=== PATIENT | male | born 1970 | race Caucasian/White ===

== ENCOUNTER 2017-03-05 05:25 | Emergency (ER) | payer OTHER ==
[2017-03-05] VITALS (7 sets, daily range): BP systolic 107–131; BP diastolic 35–69; PULSE 87–117; RESP 16–27; O2SAT 95–100
[~2017-03-05] VITALS: Ht 180.3 cm; Wt 88.6 kg
[2017-03-05] MEDS ORDERED: Ondansetron 2 mg/mL 2 mL Inj IVPUSH PRN ×2 (06:05→06:20)
[2017-03-05] MEDS ORDERED: HYDROmorphone 0.5 mg/0.5 mL iSecure Syringe IVPUSH PRN ×2 (06:05→06:20)
[2017-03-05 06:10] LABS: BASOPHILS % (AUTO) 0.3 % (0-3); EOSINOPHILS % (AUTO) 0.4 % (0-5); MONOCYTES % (AUTO) 3.2 % (4-12); Mean Corpuscular Hemoglobin 28.8 pg (27.0-35.0); Mean Corpuscular Volume 84.1 fL (81-100); NEUTROPHILS % (AUTO) 81.8 % (40-74); Platelet Count 260 bil/L (150-400)
--- NOTE | 2017-03-05 06:11 | ED.REPORT ---
HPI-Abd Pain M 40 and Over Date of Service Mar 05, 2017 ED Provider: Gonázlez Durbin MD OCC A 46 year old male with a history of type 1 diabetes, hypertension and hyperlipidemia presents to the ED complaining of constant, burning, diffuse abdominal pain onset 03:00 today. He thought his symptoms are caused by dehydration although there are no obvious reasons why he would be dehydrated. He also complains of associated nausea and vomiting but denies fever, chills or dysuria. His symptoms are not relieved by anything. He has not experienced similar symptoms previously. His sugars are reportedly well maintained and was 180 prior to coming to the ED. The pt has not been in DKA in several years. Nursing Notes Stated Complaint: ABDOMINAL PAIN Chief Complaint: Male Abdominal Pain Nursing Notes Reviewed: Yes ([employer] not reconciled) Allergies: Coded Allergies: No Known Allergies (Unverified , 03/05/17) Scheduled ([Insulin Pump-Humalog]) Continuos Lisinopril (Lisinopril) 10 Mg Tablet 10 MG PO DAILY Simvastatin (Simvastatin) 20 Mg Tablet 20 MG PO DAILY General Time Seen by MD: 06:08 Chief Complaint Abdominal pain Hx Obtained From: Patient Arrived By: Walk-in Sudden in Onset?: No Onset Occurred: 1 - 4 hours ago Symptom Duration: Since onset Progression since Onset: Constant Location: : Diffuse Quality: Burning Radiation: : Does not radiate Severity: Current: Moderate Severity: Maximum: Moderate Recent Healthcare: No recent hospitalization Similar Sx Previous: No Past Medical History Past Medical History Type 1 diabetes with insulin pump Hypertension Hyperlipidemia Past Surgical History Parathyroid Smoking History Never Smoker Ambulatory Status Independent Review of Systems Constitutional: Denies: Chills, Fever GI: Reports: Abdominal pain, Nausea, Vomiting Male: Denies Dysuria Complete sys rev & neg: except as marked. Physical Exam Initial Vital Signs Vital Signs (First) Date Time Temp Pulse Resp B/P Pulse Ox O2 Delivery O2 Flow Rate FiO2 03/05/17 05:31 35.8 87 22 131/69 97 Room Air Initial VS: Reviewed, Vital signs normal Head / Eyes: Atraumatic, Normocephalic ENT: Mucous membranes moist, Conjunctiva normal, No scleral icterus Neck: Supple, Full range of motion Extremities: Vascular intact, Neuro intact, No swelling Skin: Warm, Dry, No cyanosis Neurologic: Alert, Oriented, Nonfocal Psychiatric: Mood/affect normal, Behavior normal, Normal thought content General/Constitutional: Awake, Alert, No acute distress, Cooperative, Not toxic appearing fatigued Respiratory / Chest: Atraumatic, Breath sounds NL, Breath sounds = bilat, No respiratory distress Cardiovascular: Heart rate NL, Regular rhythm, Heart sounds NL, No gallop, No murmurs, No rubs Abdomen: Atraumatic, Soft trace diffuse abdominal tenderness Back: Full range of motion, Painless range of motion Interpretation & Diagnostics Lab Results Interpretation Result Diagram: 03/05/17 0537 03/05/17 0915 Test 03/05/17 05:37 03/05/17 07:13 03/05/17 09:15 03/05/17 12:27 Magnesium Level 1.9mg/dL (1.6-2.6) Total Bilirubin 0.5mg/dL (0.0-1.2) Aspartate Amino Transf (AST/SGOT) 34U/L (0-50) Alanine Aminotransferase (ALT/SGPT) 25U/L (0-44) Alkaline Phosphatase 93U/L (25-150) Troponin T < 0.010ug/L (0.0-0.011) Total Protein 8.2g/dL (6.4-8.4) Albumin 4.9g/dL (3.4-5.0) Lipase 14U/L (13-60) Urine Color Straw (YELLOW) Urine Appearance Hazy (CLEAR,HAZY) Urine pH 5.5 (5.0-8.0) Urine Specific [place] 1.020 (1.003-1.035) Urine Protein Negativemg/dL (NEG,TRACE) Urine Glucose (UA) 500mg/dL (NEGATIVE) Urine Ketones 80mg/dL (NEGATIVE) Urine Occult Blood Negative (NEGATIVE) Urine Nitrite Negative (NEGATIVE) Urine Bilirubin Negative (NEGATIVE) Urine Urobilinogen Normalmg/dL (NORMAL) Urine Leukocyte Esterase Negative (NEGATIVE) Urine RBC 0-2/hpf (0-2) Urine WBC 0-5/hpf (0-5) Urine Epithelial Cells Occasional/hpf (NONE-MOD) Urine Crystals None seen (NONE SEEN) Urine Bacteria None/hpf (NONE-FEW) Urine Hyaline Casts Occasional/lpf (NONE) Urine Granular Casts None seen (NONE SEEN) Urine Waxy Casts None seen (NONE SEEN) Urine Red Blood Cell Casts None seen (NONE SEEN) Urine White Blood Cell Casts None seen (NONE SEEN) Urine Mucus None seen (None Seen) Urine Trichomonas None seen (NONE SEEN) Urine Yeast None (NONE SEEN) Urinalysis Comment None Urine Culture Reflexed Not indicated Hold Urine Received (Received) Lactic Acid Level 2.0mmol/L (0.4-2.0) Lab Results Interpretation: CBC severe leukocytosis CMP severe metabolic acidosis, renal insufficiency, hyperglycemia, titrated anion gap is elevated at 36 Initial potassium is normal Lactic acid is elevated next time blood cultures pending Troponin negative ECG Interpretation ECG Interpretation: sinus tachycardia with a rate of 108 Time: 07:35 Interpreted by: ED physician CT Abd / Pelvis Interpretation IMPRESSION: 1. No evidence of bowel obstruction or inflammation. Source of abdominal pain not identified. Normal appendix is identified. Dictated by: Kashif Murguia M.D. on 03/05/2017 at 8:52 Approved by: Kashif Murguia M.D. on 03/05/2017 at 9:02 Interpretation / Wet Read by: Interpret - Radiologist Re-Eval/Medical Decision Med Decision/Clinical Course This is a 46-year-old type I diabetic on insulin pump who reports he is welcome from sleep with cramping and then developed nausea and vomiting which has persisted and he feels terrible. He reports he has not been in DKA for years, denies chest pain, shortness breath, he denies localized abdominal pain, denies fevers chills, and has no distal complaints. He appears very fatigued, and moderately ill. He reports that his glucose at home was normal, surprised to be hyperglycemic here. He has not noted any difficulties or problems with his insulin pump today. On exam he is a soft, nontender abdomen, but does appear moderately ill. An IV was placed and received pain and nausea medicine IV fluids with improvement. Lab work is notable for the presence of DKA the severe anion gap acidosis and a moderate leukocytosis. Given the symptoms, CT abdomen was obtained but was negative for clear intra-abdominal pathology. EKG is normal. A clear precipitant has not been identified, make me wonder if he is having troubles with his insulin pump. A insulin drip per DKA protocol was initiated and the insulin pump discontinued. The patient's initial potassium is normal, but repeat labs are being obtained. The patient's being admitted for continued management. However multiple patients are being ordered so there is some extended plan repeat labs have been ordered to help facilitate the timing for by potassium and further fluid replacement. A clear precipitant for the DKA has not been definitively established. The patient's afebrile, and Y has had a leukocytosis this may be simply reactive to the severe acidosis. Cultures have been drawn, but I have not found a focus initiate or require antibiotic Therapy at this time. It turns outthe CCU beds are available. Patient therefore had repeat labs drawn here in follow-up, he continues to have a severe metabolic acidosis and ongoing DKA. The lactic acidosis has resolved. His potassium has remained normal, but given the severity of the acidosis and the fact the patient is medically making adequate urine of the patient received initial dose of oral potassium. Cause there are no beds available, the patient is being transferred to [facility] were CCU bed is been available and the hospitalist accepted the patient. PLEASE NOTE: The DKA insulin drip and medical regimen do not appear in the computer customer orders clerk system, as this [employer] entry system does not currently permit a DKA, insulin component-and all of those order sets are followed on the paper system that is in place at this hospital. Addendum at 12:40 PM: Patient is clinically much improved in appearance. He feels less fatigued and he states he feels much better. He still has a tachycardia. Repeat labs are draining drawn just prior to transfer-the reveal a venous blood gas with a persistent fact anion gap acidosis pH 7.155, PCO2 31, PO2 56.5, bicarbonate of 11. He remains on a insulin drip and IV fluids. A repeat CBC and potassium are still pending Source of Hx: Old records Time of Eval: 10:10 Patient Status: Condition improved Re-Evaluation/Progress Note: Pt rechecked, who is comfortable. The diagnosis and plan to transfer to [facility] is discussed. The pt understands and agrees with the plan. All questions are addressed at this time. Consultation : Consulted With: Hospitalist Call Returned at: 10:57 Note: Spoke with [facility] Hospitalist regarding pt's case. [facility] Hospitalist agrees with the evaluation and agrees to admit the pt. Differential Diagnosis: Negative: Abdominal aortic aneurysm, Appendicitis, Cellulitis, Contusion abdominal wall, Esophageal rupture, Gun shot wound abdomen , Pancreatitis, Pyelonephritis, Stab wound abdomen, Trauma, abdominal, Urinary tract infection Counseled Regarding: Diagnosis, Lab results, Need for follow-up, When/why to return to ED Discharge & Departure Primary Impression: DKA (diabetic ketoacidosis) Diabetes mellitus type: type 1 Diabetes mellitus complication detail: without coma Qualified Code: E10.10 - Type 1 diabetes mellitus with ketoacidosis without coma Disposition: Home Vital Signs - All Vital Signs Date Time Temp Pulse Resp B/P Pulse Ox O2 Delivery O2 Flow Rate FiO2 03/05/17 12:18 101 22 112/45 97 Room Air 03/05/17 10:56 117 16 107/35 96 Room Air 03/05/17 10:32 117 27 108/46 95 Room Air 03/05/17 07:07 101 18 109/48 100 Room Air 03/05/17 05:31 35.8 87 22 131/69 97 Room Air )( All Prior VS Reviewed: Yes Condition: Stable Referrals: Ramirez Pineda MD (PCP) Crit Care Except Billable Proc Time Spent: 75-104 minutes Services Performed: Patient management by me, Time spent at bedside, Reviewing test results, Reviewing imaging, Discussing patient care, Documentation in record, Time with fam/surrogate Scribe Attestation Portions of this note were transcribed by Quinn Rodriguez. Dr. Ramakrishna Whitmore personally performed the history, physical exam and medical decision-making; I reviewed and confirmed the accuracy of the information in the transcribed note. Portions of this note were transcribed by Titus Hill. Dr. Ramakrishna Whitmore personally performed the history, physical exam and medical decision-making; I reviewed and confirmed the accuracy of the information in the transcribed note. copies to: Ramirez Pineda MD, Matthew F MD Mar 05, 2017 06:11 QUINN RODRIGUEZ Mar 05, 2017 06:20 [place] Mar 05, 2017 06:32 s were CCU bed is been available and the hospitalist accepted the patient. PLEASE NOTE: The DKA insulin drip and medical regimen do not appear in the computer customer orders clerk system, as this [employer] entry system does not currently permit a DKA, insulin component-and all of those order sets are followed on the paper system that is in place at this hospital. Source of Hx: Old records Time of Eval: 10:10 Patient Status: Condition improved Re-Evaluation/Progress Note: Pt rechecked, who is comfortable. The diagnosis and plan to transfer to [facility] is discussed. The pt understands and agrees with the plan. All questions are addressed at this time. Consultation : Consulted With: Hospitalist Call Returned at: 10:57 Note: Spoke with [facility] hospitalist regarding pt's case. [facility] Hospitalist agrees with the evaluation and agrees to admit the pt. Differential Diagnosis: Negative: Abdominal aortic aneurysm, Appendicitis, Cellulitis, Contusion abdominal wall, Esophageal rupture, Gun shot wound abdomen , Pancreatitis, Pyelonephritis, Stab wound abdomen, Trauma, abdominal, Urinary tract infection Counseled Regarding: Diagnosis, Lab results, Need for follow-up, When/why to return to ED Discharge & Departure Primary Impression: DKA (diabetic ketoacidosis) Diabetes mellitus type: type 1 Diabetes mellitus complication detail: without coma Qualified Code: E10.10 - Type 1 diabetes mellitus with ketoacidosis without coma Disposition: Home Vital Signs - All Vital Signs Date Time Temp Pulse Resp B/P Pulse Ox O2 Delivery O2 Flow Rate FiO2 03/05/17 10:56 117 16 107/35 96 Room Air 03/05/17 10:32 117 27 108/46 95 Room Air 03/05/17 07:07 101 18 109/48 100 Room Air 03/05/17 05:31 35.8 87 22 131/69 97 Room Air )( All Prior VS Reviewed: Yes Condition: Stable Referrals: Ramirez Pineda MD (PCP) Crit Care Except Billable Proc Time Spent: 75-104 minutes Services Performed: Patient management by me, Time spent at bedside, Reviewing test results, Reviewing imaging, Discussing patient care, Documentation in record, Time with fam/surrogate Scribe Attestation Portions of this note were transcribed by Quinn Rodriguez. Dr. Ramakrishna Whitmore personally performed the history, physical exam and medical decision-making; I reviewed and confirmed the accuracy of the information in the transcribed note. Portions of this note were transcribed by Titus Hill. Dr. Ramakrishna Whitmore personally performed the history, physical exam and medical decision-making; I reviewed and confirmed the accuracy of the information in the transcribed note. copies to: Ramirez Pineda MD, Matthew F MD Mar 05, 2017 06:11 QUINN RODRIGUEZ Mar 05, 2017 06:20 [place] Mar 05, 2017 06:32
[2017-03-05] MEDS ORDERED: 0.9% Sodium Chloride 1,000 ML IV ONE (06:20)
[2017-03-05 06:37] LABS: Magnesium 1.9 mg/dL (1.6-2.6)
[2017-03-05] MEDS ORDERED: D5W1/2NS 1,000 mL IV PRN (08:05)
[2017-03-05] MEDS ORDERED: Insulin Human REGular 100 Units/100 mL NS IV SCH ×2 (08:05)
--- NOTE | 2017-03-05 09:05 | DRSVH ---
PROCEDURE: CT ABDOMEN AND PELVIS WITH CONTRAST ([id number]) INDICATIONS: Abd pain TECHNIQUE: After the administration of intravenous contrast, 5 mm thick sections acquired from the diaphragm to the symphysis. 5 mm coronal and sagittal reformats were acquired. For radiation dose reduction, the following was used: automated exposure control, adjustment of mA and/or kV according to patient siz e. COMPARISON: None. FINDINGS: Image quality: Excellent. ABDOMEN: Lung bases: Lung bases are clear. Heart size is normal. Solid organs: Liver and spleen are normal in size and enhancement. Small splenule. Gallbladder is no rmal. Biliary system is non dilated. Pancreas enhances normally. No adrenal nodules. Kidneys demo nstrate normal size and enhancement, without hydronephrosis. Peritoneum and bowel: Bowel loops demonstrate normal wall thickness and caliber. Normal appendix. No free fluid or air. Nodes and vessels: No retroperitoneal or mesenteric adenopathy by size criteria. Aorta and inferior vena cava are normal in size. Miscellaneous: No ventral hernias. PELVIS: Genitourinary: Bladder wall thickness is normal. Normal prostate. Miscellaneous: No inguinal hernias or adenopathy. Bones: No suspicious bony lesions. No vertebral body compression fractures. IMPRESSION: 1. No evidence of bowel obstruction or inflammation. Source of abdominal pain not identified. Normal appendix is identified. Dictated by: Kashif Murguia M.D. on 03/05/2017 at 8:52 Approved by: Kashif Murguia M.D. on 03/05/2017 at 9:02
[2017-03-05 09:31] LABS: APPEARANCE,URINE HAZY (CLEAR,HAZY); COLOR,URINE STRAW (YELLOW); PH,URINE 5.5 (5.0-8.0)
[2017-03-05 09:32] LABS: OCCULT BLOOD,URINE NEGATIVE (NEGATIVE); UROBILINOGEN,URINE NORMAL (NORMAL)
[2017-03-05] MEDS ORDERED: Potassium Chloride 20 mEq SR Tablet PO ONE (10:10)
[2017-03-05] MEDS ORDERED: INSULIN PUMP HUMALOG (10:57)
[2017-03-05] MEDS ORDERED: LISI10TA PO (10:58)
[2017-03-05] MEDS ORDERED: SIMV20TA4 PO (10:58)
--- NOTE | 2017-03-05 12:47 | ABG ---
DateTimeAnalyzed 12:34:18 -_ pH ____7.155 - pCO2 ___31.2__ -mmHg pO2 ___56.5__ -mmHg HCO3- ___11.0__ -mmol/L 22.0 26.0 ABE __-16.5__ -mmol/L tHb ___14.9__ -g/dL O2Hb ___83.5__ -% COHb ____1.6__ -% 1.5 MetHb ____0.2__ -% sO2 ___85.1__ -% FIO2 ___21.0__ -% Drawn By LAB - Date/Time Notified____ 12:47:00 -_ Notified By RC - Notified Whom JULIA MD - K+ ____4.6__ -mmol/L tO2 ___17.5__ -Vol% Edgardo test N/A -
[2017-03-05 12:50] LABS: BASOPHILS % (AUTO) 0.1 % (0-3); EOSINOPHILS % (AUTO) 0 % (0-5); MONOCYTES % (AUTO) 4.5 % (4-12); Mean Corpuscular Hemoglobin 29.3 pg (27.0-35.0); Mean Corpuscular Volume 85.1 fL (81-100); NEUTROPHILS % (AUTO) 91.3 % (40-74); Platelet Count 241 bil/L (150-400)
== END 2017-03-05 13:21 | disposition short-term general hospital (02) ==
LOC: SED 05:25
DX: E10.10 Type 1 diabetes mellitus with ketoacidosis without coma (principal); I10 Essential (primary) hypertension; E78.5 Hyperlipidemia, unspecified; Z79.4 Long term (current) use of insulin
CPT/HCPCS: 36415; 74177; 80048; 80053; 81000; 82375; 82803; 82948; 83605; 83690; 83735; 84484; 85025; 87040; 93005; 94799; 96361; 96374; 96375; 99291; 99292; J1170; J1815; J2405; J7030; Q9967